=== PATIENT | male | born 1950 | race American Indian/Alaskan Native ===

== ENCOUNTER 2016-12-09 15:20 | Inpatient (IN) | payer MEDICARE, BC ==
--- NOTE | 2016-12-09 16:11 | C.PDOC ---
History Of Present Illness 66 yr old male referred to ED by Dr. Maloney for evaluation of 1 week of dizziness and occasional falls. Patient reports history of vertigo. Patient denies fever, chills, chest pain, SOB, nausea, vomiting, headache, weakness or numbness. Time Seen by Provider: 12/09/16 16:07 Chief Complaint (Nursing): Weakness/Neurological Deficit History Per: Patient History/Exam Limitations: no limitations Onset/Duration Of Symptoms: Days (1 week) Past Medical History Reviewed: Historical Data, Nursing Documentation, Vital Signs Vital Signs: Last Vital Signs Temp 97.6 F 12/09/16 15:43 Pulse 83 12/09/16 18:07 Resp 16 12/09/16 18:07 BP 134/93 H 12/09/16 18:07 Pulse Ox 98 12/09/16 18:37 - Medical History PMH: HTN Family History: States: No Known Family Hx - Social History Hx Alcohol Use: No Hx Substance Use: No - Immunization History Hx Tetanus Toxoid Vaccination: No Hx Influenza Vaccination: No Review Of Systems Except As Marked, All Systems Reviewed And Found Negative. Constitutional: Negative for: Fever, Chills Cardiovascular: Negative for: Chest Pain Respiratory: Negative for: Shortness of Breath Neurological: Positive for: Dizziness Physical Exam - Physical Exam Appears: Well, Non-toxic, No Acute Distress Skin: Warm, Dry, No Rash Head: Atraumatic, Normacephalic Chest: Symmetrical, No Tenderness Cardiovascular: Rhythm Regular, No Murmur Respiratory: Normal Breath Sounds, No Rales, No Wheezing Extremity: Normal ROM, No Swelling Neurological/Psych: Oriented x3, Normal Speech, Normal Motor ED Course And Treatment - Laboratory Results Result Diagrams: 12/09/16 16:57 12/09/16 16:49 Lab Interpretation: Normal (ua, UDS, etoh, neg.) ECG: Interpreted By Me, Viewed By Me ECG Rhythm: Sinus Rhythm ECG Interpretation: Normal, Abnormal Rate From EC (BPM) O2 Sat by Pulse Oximetry: 98 (RA) Pulse Ox Interpretation: Normal - Radiology CXR: Viewed By Me, Read By Radiologist CXR Interpretation: Yes: No Acute Disease - CT Scan/US CT - Head Other Rad Studies (CT/US): Read By Radiologist, Radiology Report Reviewed CT/US Interpretation: IMPRESSION: No acute intracranial abnormality. Mild age- related cerebral volume loss. Also noted is mild cerebellar volume loss. Reevaluation Time: 18:29 Reassessment Condition: Improved - Physician Consult Information Outcome Of Conversation: 1830: d/w Dr. Jason Palmer- covering for Dr. Court abernathy to Tele Obs. Medical Decision Making Medical Decision Making: PLAN: * CT - head * CXR * EKG * Alcohol Serum * Drug Screen * Troponin * CBC * CMP * Meclizine PO acute on chronic dizziness, ? ataxia vs vertigo, distant h/o epilepsy but no epilepsy meds x 30 years. denies h/o alcoholism. consider brain MRI and neuro consult in AM Disposition Doctor Will See Patient In The: Hospital Counseled Patient/Family Regarding: Studies Performed, Diagnosis - Disposition Disposition: HOSPITALIZED Disposition Time: 18:30 Condition: GOOD - Clinical Impression Clinical Impression: Ataxia, Frequent falls - Scribe Statement The provider has reviewed the documentation as recorded by the Scribe Kelley Burk Provider Attestation: All medical record entries made by the Scribe were at my direction and personally dictated by me. I have reviewed the chart and agree that the record accurately reflects my personal performance of the history, physical exam, medical decision making, and the department course for this patient. I have also personally directed, reviewed, and agree with the discharge instructions and disposition.
[2016-12-09 16:55] LABS: BASO % 0.6 % (0.0-2.0); EOS # 0.2 K/uL (0.0-0.7); EOS % 3.5 % (0.0-4.0); LYMPH # 1.8 K/uL (1.0-4.3); LYMPH % 37.7 % (20.0-40.0); MEAN CELL VOLUME 93.8 fL (80.0-94.0); MEAN CORPUSCULAR HEMOGLOBIN 30.6 pg (27.0-31.0); MEAN CORPUSCULAR HGB CONC 32.7 g/dL (33.0-37.0); MEAN PLATELET VOLUME 9.3 fL (7.2-11.7); MONO # 0.7 K/uL (0.0-0.8); MONO % 13.9 % (0.0-10.0); NRBC % 0.1 % (0.0-2.0); RED CELL DISTRIBUTION WIDTH 13.1 % (11.5-14.5); WHITE BLOOD COUNT 4.9 K/uL (4.8-10.8)
--- NOTE | 2016-12-09 16:59 | RAD ---
HISTORY: dizzy COMPARISON: No prior. FINDINGS: LUNGS: No active pulmonary disease. PLEURA: No significant pleural effusion identified, no pneumothorax apparent. CARDIOVASCULAR: Normal. OSSEOUS STRUCTURES: No significant abnormalities. VISUALIZED UPPER ABDOMEN: Normal. OTHER FINDINGS: None. IMPRESSION: No active disease.
[2016-12-09 17:00] LABS: CHLORIDE 102 mmol/L (98-107); POTASSIUM 4.2 mmol/L (3.6-5.2); SODIUM 139 mmol/L (132-148)
[2016-12-09 17:02] LABS: BILIRUBIN,TOTAL 0.6 mg/dL (0.2-1.3); CARBON DIOXIDE 30 mmol/L (22-30); CHOLESTEROL 142 mg/dL (0-199); GFR AFRICAN-AMERICAN > 60
[2016-12-09 17:03] LABS: ALB/GLOB RATIO 1.2 (1.0-2.1); ALKALINE PHOSPHATASE 94 U/L (38-126); ALT/SGPT 27 U/L (21-72); AST/SGOT 25 U/L (17-59); BLOOD UREA NITROGEN 18 mg/dL (9-20); CALCIUM 9.3 mg/dl (8.6-10.4); GLUCOSE,RANDOM 81 mg/dL (75-110); TOTAL PROTEIN 7.5 g/dL (6.3-8.3)
[2016-12-09 17:04] LABS: ALCOHOL SERUM < 10 mg/dl (0-10)
--- NOTE | 2016-12-09 18:25 | CT ---
PROCEDURE: CT HEAD WITHOUT CONTRAST. HISTORY: vertigo, falls, ? cerebellar COMPARISON: None available. TECHNIQUE: Axial computed tomography images were obtained through the head/brain without intravenous contrast. Radiation dose: Total exam DLP = 1026.21 mGy-cm. This CT exam was performed using one or more of the following dose reduction techniques: Automated exposure control, adjustment of the mA and/or kV according to patient size, and/or use of iterative reconstruction technique. FINDINGS: HEMORRHAGE: No acute intracranial hemorrhage. BRAIN: Reardon-white matter differentiation is preserved. There is no mass, mass effect or abnormal extra-axial fluid collection will VENTRICLES: There is mild age-related global parenchymal volume loss and proportionate enlargement of the ventricles and cortical sulci. There is also prominence of the cerebellar folia. CALVARIUM: There is no calvarial fracture or extracranial soft tissue swelling. PARANASAL SINUSES: Unremarkable as visualized. No significant inflammatory changes. MASTOID AIR CELLS: Unremarkable as visualized. No inflammatory changes. OTHER FINDINGS: None. IMPRESSION: No acute intracranial abnormality. Mild age-related cerebral volume loss. Also noted is mild cerebellar volume loss.
--- NOTE | 2016-12-09 21:54 | CP.PCM.HP ---
Past Patient History - Past Medical History & Family History Past Medical History?: Yes - Past Social History Smoking Status: Never Smoked - CARDIAC Hx Hypertension: Yes - PULMONARY Hx Respiratory Disorders: No - NEUROLOGICAL Hx Neurological Disorder: No - HEENT Hx HEENT Problems: No - RENAL Hx Chronic Kidney Disease: No - ENDOCRINE/METABOLIC Hx Endocrine Disorders: No - HEMATOLOGICAL/ONCOLOGICAL Hx Blood Disorders: No - INTEGUMENTARY Hx Dermatological Problems: No - MUSCULOSKELETAL/RHEUMATOLOGICAL Hx Musculoskeletal Disorders: No Hx Falls: Yes - GASTROINTESTINAL Hx Gastrointestinal Disorders: No - GENITOURINARY/GYNECOLOGICAL Hx Genitourinary Disorders: No - PSYCHIATRIC Hx Psychophysiologic Disorder: No Hx Substance Use: No - SURGICAL HISTORY Hx Surgeries: No - ANESTHESIA Hx Anesthesia: No Hx Anesthesia Reactions: No Meds Allergies/Adverse Reactions: Allergies Allergy/AdvReac Type Severity Reaction Status Date / Time No Known Allergies Allergy Unverified 12/09/16 15:38 Results - Vital Signs Recent Vital Signs: Last Vital Signs Temp 97.6 F 12/09/16 15:43 Pulse 76 12/09/16 19:09 Resp 18 12/09/16 19:09 BP 133/93 H 12/09/16 19:09 Pulse Ox 99 12/09/16 19:09 - Labs Result Diagrams: 12/09/16 16:57 12/09/16 16:49
[2016-12-09] MEDS: guaiFENesin 200 mg/10 ml Syrup UD PO PRN (22:12)
--- NOTE | 2016-12-09 22:33 | CP.PCM.CON ---
History of Present Illness - History of Present Illness History of Present Illness: 66 year old with HTN, admitted with dizziness, near syncope, never LOC, + fall no injury, Head CT no pathology, improved with antivert. no fever, no CP no N/V Review of Systems - Constitutional Constitutional: Anorexia, Weakness - EENT Eyes: absent: Discharge Ears: Dizziness. absent: Ear Discharge Nose/Mouth/Throat: absent: Epistaxis - Cardiovascular Cardiovascular: absent: Acrocyanosis, Chest Pain, Diaphoresis, Leg Edema, Palpitations, Syncope - Respiratory Respiratory: absent: Cough, Dyspnea, Hemoptysis - Gastrointestinal Gastrointestinal: absent: Abdominal Pain, Diarrhea, Vomiting - Genitourinary Genitourinary: absent: Change in Urinary Stream Past Patient History - Past Medical History & Family History Past Medical History?: Yes - Past Social History Smoking Status: Never Smoked - CARDIAC Hx Hypertension: Yes - PULMONARY Hx Respiratory Disorders: No - NEUROLOGICAL Hx Neurological Disorder: No - HEENT Hx HEENT Problems: No - RENAL Hx Chronic Kidney Disease: No - ENDOCRINE/METABOLIC Hx Endocrine Disorders: No - HEMATOLOGICAL/ONCOLOGICAL Hx Blood Disorders: No - INTEGUMENTARY Hx Dermatological Problems: No - MUSCULOSKELETAL/RHEUMATOLOGICAL Hx Musculoskeletal Disorders: No Hx Falls: Yes - GASTROINTESTINAL Hx Gastrointestinal Disorders: No - GENITOURINARY/GYNECOLOGICAL Hx Genitourinary Disorders: No - PSYCHIATRIC Hx Psychophysiologic Disorder: No Hx Substance Use: No - SURGICAL HISTORY Hx Surgeries: No - ANESTHESIA Hx Anesthesia: No Hx Anesthesia Reactions: No Meds Allergies/Adverse Reactions: Allergies Allergy/AdvReac Type Severity Reaction Status Date / Time No Known Allergies Allergy Unverified 12/09/16 15:38 - Medications Medications: Current Medications Amlodipine Besylate (Norvasc) 5 mg PO DAILY [facility] Ergocalciferol (Drisdol 50,000 Intl Units Cap) 1 cap PO QWK [facility] Guaifenesin (Robitussin) 200 mg PO TID PRN PRN Reason: Cough and congestion Last Admin: 12/09/16 22:12 Dose: 200 mg Meclizine HCl (Antivert) 25 mg PO TID [facility] Pantoprazole Sodium (Protonix Ec Tab) 40 mg PO DAILY [facility] Pneumococcal Polyvalent Vaccine (Pneumovax 23 Vaccine) 0.5 ml IM .ONCE ONE Stop: 12/12/16 10:01 Physical Exam - Constitutional Appears: Non-toxic, No Acute Distress - Head Exam Head Exam: ATRAUMATIC - Eye Exam Eye Exam: EOMI - ENT Exam ENT Exam: Mucous Membranes Moist - Neck Exam Neck exam: Negative for: Lymphadenopathy, Thyromegaly - Respiratory Exam Respiratory Exam: Clear to Auscultation Bilateral. absent: Rales - Cardiovascular Exam Cardiovascular Exam: REGULAR RHYTHM. absent: Systolic Murmur - GI/Abdominal Exam GI & Abdominal Exam: Normal Bowel Sounds. absent: Organomegaly - Rectal Exam Rectal Exam: Deferred - Extremities Exam Extremities exam: Positive for: normal capillary refill. Negative for: calf tenderness - Neurological Exam Neurological exam: Alert, Oriented x3 - Psychiatric Exam Psychiatric exam: Normal Mood - Skin Skin Exam: Dry Results - Vital Signs Recent Vital Signs: Last Vital Signs Temp 98.2 F 12/09/16 22:02 Pulse 89 12/09/16 22:02 Resp 18 12/09/16 22:02 BP 129/86 12/09/16 22:02 Pulse Ox 96 12/09/16 22:02 - Labs Result Diagrams: 12/09/16 16:57 12/09/16 16:49 Assessment & Plan (1) Near syncope Status: Acute Comment: unlikely arrhythmia, check echo (2) Frequent falls Status: Acute
--- NOTE | 2016-12-10 08:34 | CON ---
DATE: 12/10/2016 ATTENDING PHYSICIAN: Pramod Palmer MD The patient's room number is 665, bed A. REASON FOR CONSULTATION: Dizziness. CHIEF COMPLAINT: The patient has been presenting with a history of dizziness for the last 1 month; h owever, 2 days, the symptoms got worse. From neurological point of view, I was called in to evaluate him for further management. 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 F or the last 1 month, he has been having these symptoms; however, for the last 2 days, dizziness got i ntensified while he is walking. No history of fall, no history of body leaning to either side of his body. No history of loss of consciousness, no history of involuntary movements, no history of head trauma. No history of neck injuries. No history of bowel and bladder incontinence or bitten tongue. No similar episodes happened. This episode is not associating with nausea or vomiting, double visi on and poor speech impairment. PAST MEDICAL HISTORY: Hypertension. PERSONAL HISTORY: Denies smoking or alcohol use. ALLERGIES: No known allergies. REVIEW OF SYSTEMS: As per the H and P. MEDICATIONS: Meclizine, amlodipine, pantoprazole, Robitussin. PHYSICAL EXAMINATION: VITAL SIGNS: Blood pressure 137/92, mean arterial pressure of 107, respiratory rate 16, temperature 98.2, pulse rate 83, regular. NECK: Supple. No carotid bruit. HEART: Sounds are regular. CHEST: Fair air entry. EXTREMITIES: No edema in legs. NEUROLOGIC EXAMINATION: MENTAL STATUS: He is awake, alert, oriented to person, place, and time. Speech is clear. Naming, r epetition, fluency, comprehension all within normal. CRANIAL NERVE: Visual field intact, pupils reactive to light. Extraocular movements are normal. No nystagmus, no facial sensory deficits. Mild facial asymmetry manifesting as flattening of the right nasolabial fold. Hearing is normal. Tongue is midline. Good gag. MOTOR: On outstretched hand with eyes closed, no drift noted. Power is symmetric on either side. DEEP TENDON REFLEXES: Biceps, brachialis, triceps are absent, left knee 2+, right knee absent. Both ankles are absent. Plantars are equivocal response on the left side, right side was downgoing. SENSORY: No cortical sensory loss. COORDINATION: Zwaqyu-caad-runpnd test is intact. GAIT: He could get up by himself out of the bed and march in one place. Rhomberg sign negative. Ta ndem is not normal, leaning the body either side. CONCLUSION: Upon reviewing his history and neurological examination, the patient is presenting with ataxic hemiparesis, probably small vessel disease versus mass in posterior cerebral artery distributi on versus infratentorial region. WORKUP: CT of the head reviewed. No acute pathologies noted. EKG normal sinus rhythm. BLOOD WORKUP: WBC 4.9, hemoglobin 13.7, hematocrit 42.0, platelets 143. PT 11.0, INR 1.0, PTT 29. Sodium 139, potassium 4.2, chloride 102, bicarbonate 30, BUN 18, creatinine 0.8, GFR more than 60, h emoglobin A1c 5.8, calcium 9.3. Liver functions are normal. Cholesterol 142, triglyceride 10, LDL 7 6, HDL 49. Urine for tox screen negative. RECOMMENDATIONS: 1. Plavix is added to prevent ischemic process. 2. Blood pressure maintenance to keep mean arterial pressure of 100. 3. Carotid Doppler to rule out stenosis. Echocardiogram to rule out any cardioembolic phenomenon, M RI of the brain to rule out any ischemic process versus mass lesion. The patient's condition has been well discussed with him. He agreed with the plan of management. Th e patient should get out of the bed and DVT prophylaxis should be followed. The patient will be followed closely while he is in the hospital. Miller Rossi MD cc: [id number] TT: 12/10/2016 08:33:42 Confirmation # [id number] Dictation # [id number] tn
[2016-12-10] MEDS ORDERED: Pantoprazole 40 mg EC Tab PO SCH (10:00)
--- NOTE | 2016-12-10 11:45 | MRI ---
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 TECHNIQUE: Multiplanar, multisequence MR images of the brain were obtained without intravenous contrast enhancement. FINDINGS: HEMORRHAGE: None DWI: No evidence of an acute or early subacute infarction. BRAIN PARENCHYMA: No mass effect or edema. Mild atrophy. Numerous foci of white matter signal abnormality in the frontal and parietal subcortical white matter as well as in the periatrial white matter which is nonspecific but statistically most likely secondary to chronic microvascular ischemic disease. No evidence of acute infarct. VENTRICLES: Unremarkable. No hydrocephalus. CRANIUM: Unremarkable. ORBITS: Grossly unremarkable. PARANASAL SINUSES/MASTOIDS: Clear VASCULAR SYSTEM: Skull base flow voids intact. OTHER FINDINGS: None. IMPRESSION: Numerous foci of white matter signal abnormality in the frontal and parietal subcortical white matter as well as in the periatrial white matter which is nonspecific but statistically most likely secondary to chronic microvascular ischemic disease. No evidence of acute infarct.
[2016-12-10 12:17] LABS: FREE T4 0.69 ng/dL (0.78-2.19)
[2016-12-10 12:30] LABS: THYROID STIMULATING HORMONE 1.73 mIU/L (0.46-4.68)
--- NOTE | 2016-12-10 13:26 | CP.PCM.PN ---
Subjective - Date & Time of Evaluation Date of Evaluation: 12/10/16 Time of Evaluation: 12:20 - Subjective Subjective: clinically same Objective - Vital Signs/Intake and Output Vital Signs (last 24 hours): Temp Pulse Resp BP Pulse Ox 97.5 F L 66 20 123/72 97 12/10/16 07:35 12/10/16 08:10 12/10/16 07:35 12/10/16 07:35 12/10/16 07:35 Intake and Output: 12/10/16 12/10/16 06:59 18:59 Intake Total 240 Balance 240 - Medications Medications: Current Medications Amlodipine Besylate (Norvasc) 5 mg PO DAILY [facility] Last Admin: 12/10/16 09:17 Dose: 5 mg Clopidogrel Bisulfate (Plavix) 75 mg PO DAILY [facility] Last Admin: 12/10/16 09:16 Dose: 75 mg Ergocalciferol (Drisdol 50,000 Intl Units Cap) 1 cap PO QWK [facility] Famotidine (Pepcid) 20 mg PO BID [facility] Last Admin: 12/10/16 09:15 Dose: 20 mg Guaifenesin (Robitussin) 200 mg PO TID PRN PRN Reason: Cough and congestion Last Admin: 12/09/16 22:12 Dose: 200 mg Meclizine HCl (Antivert) 25 mg PO TID [facility] Last Admin: 12/10/16 13:09 Dose: 25 mg Pneumococcal Polyvalent Vaccine (Pneumovax 23 Vaccine) 0.5 ml IM .ONCE ONE Stop: 12/12/16 10:01 Thiamine HCl (Vitamin B1 Tab) 100 mg PO DAILY [facility] Last Admin: 12/10/16 09:17 Dose: 100 mg - Labs Labs: PT 11.0 SECONDS (9.7-12.2) 12/09/16 16:49 INR 1.0 12/09/16 16:49 APTT 29 SECONDS (21-34) 12/09/16 16:49 - Constitutional Appears: Well - Head Exam Head Exam: ATRAUMATIC, NORMAL INSPECTION, NORMOCEPHALIC - Eye Exam Eye Exam: EOMI, Normal appearance, PERRL Pupil Exam: NORMAL ACCOMODATION, PERRL - ENT Exam ENT Exam: Mucous Membranes Moist, Normal Exam - Neck Exam Neck Exam: Full ROM, Normal Inspection. absent: Lymphadenopathy - Respiratory Exam Respiratory Exam: Decreased Breath Sounds - Cardiovascular Exam Cardiovascular Exam: REGULAR RHYTHM, +S1, +S2 - GI/Abdominal Exam GI & Abdominal Exam: Soft, Diminished Bowel Sounds - Rectal Exam Rectal Exam: Deferred
[2016-12-10] MEDS: guaiFENesin 200 mg/10 ml Syrup UD PO PRN (14:36)
--- NOTE | 2016-12-10 15:23 | CP.PCM.PN ---
Subjective - Date & Time of Evaluation Date of Evaluation: 12/10/16 Time of Evaluation: 12:00 - Subjective Subjective: echo with NL LV, No , no effusion, unlikely arrhythmia, stable cardic treatment of vertigo Objective - Vital Signs/Intake and Output Vital Signs (last 24 hours): Temp Pulse Resp BP Pulse Ox 97.5 F L 66 20 123/72 97 12/10/16 07:35 12/10/16 08:10 12/10/16 07:35 12/10/16 07:35 12/10/16 07:35 Intake and Output: 12/10/16 12/10/16 06:59 18:59 Intake Total 240 Balance 240 - Medications Medications: Current Medications Amlodipine Besylate (Norvasc) 5 mg PO DAILY [facility] Last Admin: 12/10/16 09:17 Dose: 5 mg Clopidogrel Bisulfate (Plavix) 75 mg PO DAILY [facility] Last Admin: 12/10/16 09:16 Dose: 75 mg Ergocalciferol (Drisdol 50,000 Intl Units Cap) 1 cap PO QWK [facility] Famotidine (Pepcid) 20 mg PO BID [facility] Last Admin: 12/10/16 09:15 Dose: 20 mg Guaifenesin (Robitussin) 200 mg PO TID PRN PRN Reason: Cough and congestion Last Admin: 12/10/16 14:36 Dose: 200 mg Meclizine HCl (Antivert) 25 mg PO TID [facility] Last Admin: 12/10/16 13:09 Dose: 25 mg Pneumococcal Polyvalent Vaccine (Pneumovax 23 Vaccine) 0.5 ml IM .ONCE ONE Stop: 12/12/16 10:01 Thiamine HCl (Vitamin B1 Tab) 100 mg PO DAILY [facility] Last Admin: 12/10/16 09:17 Dose: 100 mg - Labs Labs: PT 11.0 SECONDS (9.7-12.2) 12/09/16 16:49 INR 1.0 12/09/16 16:49 APTT 29 SECONDS (21-34) 12/09/16 16:49 - Constitutional Appears: Non-toxic - Head Exam Head Exam: ATRAUMATIC - Eye Exam Eye Exam: EOMI - ENT Exam ENT Exam: Mucous Membranes Moist - Neck Exam Neck Exam: absent: Lymphadenopathy, Thyromegaly - Respiratory Exam Respiratory Exam: Clear to Ausculation Bilateral. absent: Rales - Cardiovascular Exam Cardiovascular Exam: REGULAR RHYTHM, Murmur - GI/Abdominal Exam GI & Abdominal Exam: Normal Bowel Sounds. absent: Organomegaly - Rectal Exam Rectal Exam: Deferred - Extremities Exam Extremities Exam: Normal Capillary Refill. absent: Calf Tenderness - Neurological Exam Neurological Exam: Alert, Oriented x3 - Psychiatric Exam Psychiatric exam: Normal Mood - Skin Skin Exam: Dry Assessment and Plan (1) Near syncope Status: Acute (2) Frequent falls Status: Acute
--- NOTE | 2016-12-10 20:24 | CARD ---
APPROVED REPORT EXAM: Two-dimensional and M-mode echocardiogram with Doppler and color Doppler. Other Information Quality : GoodRhythm : NSR INDICATION Dizziness and Vertigo Syncope FREQUENT FALLS, CEREBELLAR ATROPHY M-Mode DIMENSIONS RVDd2.02 (2.1-3.2cm)Left Atrium (MM)3.38 (2.5-4.0cm) IVSd1.07 (0.7-1.1cm)Aortic Root3.74 (2.2-3.7cm) LVDd4.69 (4.0-5.6cm)Aortic Cusp Exc.2.51 (1.5-2.0cm) PWd1.07 (0.7-1.1cm)FS (%) 40 % LVDs2.80 (2.0-3.8cm)LVEF (%)71 (>50%) Aortic Valve AoV Peak Hvekblkr233.2cm/Gregorio Peak GR.6mmHg Mitral Valve MV E Pqzgwvii74.7cm/sMV A Qkrfcwjp20.0cm/sE/A ratio1.1 TDI E/Lateral E'0.0E/Medial E'0.0 Tricuspid Valve TR Peak [id number]/sTR Peak Gr.[id number] LEFT VENTRICLE The left ventricle is normal size. There is borderline concentric left ventricular hypertrophy. The left ventricular function is normal. The left ventricular ejection fraction is within the normal range. There is normal LV segmental wall motion. Transmitral Doppler flow pattern is Grade I-abnormal relaxation pattern. RIGHT VENTRICLE The right ventricle is normal size. There is normal right ventricular wall thickness. The right ventricular systolic function is normal. ATRIA The left atrium size is normal. The right atrium size is normal. AORTIC VALVE The aortic valve is not well visualized. No aortic regurgitation is present. MITRAL VALVE The mitral valve is mildly thickened. There is no mitral valve stenosis. There is no mitral valve regurgitation noted. TRICUSPID VALVE There is mild pulmonary hypertension. PULMONIC VALVE There is trace to mild pulmonic valvular regurgitation. GREAT VESSELS The aortic root is normal in size. The IVC is normal in size and collapses >50% with inspiration. PERICARDIAL EFFUSION There is no pericardial effusion. <Conclusion> The left ventricle is normal size. There is borderline concentric left ventricular hypertrophy. The left ventricular function is normal. The left ventricular ejection fraction is within the normal range. There is normal LV segmental wall motion. Transmitral Doppler flow pattern is Grade I-abnormal relaxation pattern. There is mild pulmonary hypertension.
[2016-12-11 07:36] LABS: BASO % 0.4 % (0.0-2.0); EOS # 0.2 K/uL (0.0-0.7); EOS % 4.7 % (0.0-4.0); HEMATOCRIT 39.6 % (35.0-51.0); LYMPH % 43.2 % (20.0-40.0); MEAN CELL VOLUME 94.5 fL (80.0-94.0); MEAN CORPUSCULAR HEMOGLOBIN 31.1 pg (27.0-31.0); MEAN CORPUSCULAR HGB CONC 32.9 g/dL (33.0-37.0); MEAN PLATELET VOLUME 9.5 fL (7.2-11.7); MONO # 0.7 K/uL (0.0-0.8); MONO % 14.7 % (0.0-10.0); RED CELL DISTRIBUTION WIDTH 12.9 % (11.5-14.5); WHITE BLOOD COUNT 4.6 K/uL (4.8-10.8)
[2016-12-11 07:49] LABS: CHLORIDE 107 mmol/L (98-107)
[2016-12-11 07:50] LABS: POTASSIUM 4.2 mmol/L (3.6-5.2); SODIUM 141 mmol/L (132-148)
[2016-12-11 07:52] LABS: CARBON DIOXIDE 27 mmol/L (22-30); GFR AFRICAN-AMERICAN > 60
[2016-12-11 07:53] LABS: ALB/GLOB RATIO 1.1 (1.0-2.1); ALKALINE PHOSPHATASE 77 U/L (38-126); ALT/SGPT 24 U/L (21-72); AST/SGOT 20 U/L (17-59); BILIRUBIN,TOTAL 0.7 mg/dL (0.2-1.3); BLOOD UREA NITROGEN 25 mg/dL (9-20); CALCIUM 8.8 mg/dl (8.6-10.4); GLUCOSE,RANDOM 94 mg/dL (75-110); TOTAL PROTEIN 6.5 g/dL (6.3-8.3)
[2016-12-11] MEDS: guaiFENesin 200 mg/10 ml Syrup UD PO PRN (09:48)
--- NOTE | 2016-12-11 11:55 | PN ---
DATE: 12/11/2016 TIME OF EVALUATION: 11:15 a.m. NEUROLOGICAL PROBLEM: Near syncopal attack with dizziness. PHYSICAL EXAMINATION: VITAL SIGNS: Blood pressure 122/84, mean arterial pressure of 96, respiratory rate 16, temperature 9 7.8, pulse rate 63, regular. The patient is ambulating by himself. He denies any new complaints, except mild lightheadedness in h is head, which is not changed. Examination is overall unchanged to compare with my previous examinat ion. WORKUP: MRI showed significant atrophy, more than his age. Periventricular ischemic changes, which are all old. No acute pathologies noted. The patient is on antiplatelets with blood pressure medication, which should be continued. The patie nt also should have an electroencephalogram, which can be done in the morning. Following that, if me dically stable, the patient can be discharged and should have a followup visit with me as outpatient. As outpatient, patient will be scheduled to have polysomnogram to assess his hidden sleep related b reathing disorder for further management. Miller Rossi MD cc: [id number] TT: 12/11/2016 11:55:02 Confirmation # [id number] Dictation # [id number]
--- NOTE | 2016-12-11 14:42 | CP.PCM.PN ---
Subjective - Date & Time of Evaluation Date of Evaluation: 12/11/16 Time of Evaluation: 12:00 - Subjective Subjective: MRI with small foci suggestive of ischemia and small vessel disease, with ataxia , echocardiogram failed to reveal any possible cardiac embolic source, stable cardiac follow-up with neurology on treatment for vertigo Objective - Vital Signs/Intake and Output Vital Signs (last 24 hours): Temp Pulse Resp BP Pulse Ox 97.8 F 93 H 20 122/84 94 L 12/11/16 08:20 12/11/16 11:55 12/11/16 08:20 12/11/16 08:20 12/11/16 11:55 Intake and Output: 12/11/16 12/11/16 06:59 18:59 Intake Total 450 Balance 450 - Medications Medications: Current Medications Amlodipine Besylate (Norvasc) 5 mg PO DAILY [facility] Last Admin: 12/11/16 09:48 Dose: 5 mg Clopidogrel Bisulfate (Plavix) 75 mg PO DAILY [facility] Last Admin: 12/11/16 09:49 Dose: 75 mg Ergocalciferol (Drisdol 50,000 Intl Units Cap) 1 cap PO QWK [facility] Famotidine (Pepcid) 20 mg PO BID [facility] Last Admin: 12/11/16 09:48 Dose: 20 mg Guaifenesin (Robitussin) 200 mg PO TID PRN PRN Reason: Cough and congestion Last Admin: 12/11/16 09:48 Dose: 200 mg Heparin Sodium (Porcine) (Heparin) 5,000 units SC Q12 [facility] Last Admin: 12/11/16 09:48 Dose: 5,000 units Meclizine HCl (Antivert) 25 mg PO TID [facility] Last Admin: 12/11/16 13:08 Dose: 25 mg Pneumococcal Polyvalent Vaccine (Pneumovax 23 Vaccine) 0.5 ml IM .ONCE ONE Stop: 12/12/16 10:01 Thiamine HCl (Vitamin B1 Tab) 100 mg PO DAILY [facility] Last Admin: 12/11/16 09:48 Dose: 100 mg - Labs Labs: 12/11/16 07:11 12/11/16 07:11 PT 11.0 SECONDS (9.7-12.2) 12/09/16 16:49 INR 1.0 12/09/16 16:49 APTT 29 SECONDS (21-34) 12/09/16 16:49 - Constitutional Appears: Non-toxic - Head Exam Head Exam: ATRAUMATIC - Eye Exam Eye Exam: EOMI - ENT Exam ENT Exam: Mucous Membranes Moist - Neck Exam Neck Exam: absent: Lymphadenopathy, Thyromegaly - Respiratory Exam Respiratory Exam: Clear to Ausculation Bilateral. absent: Rales - Cardiovascular Exam Cardiovascular Exam: REGULAR RHYTHM, Murmur - GI/Abdominal Exam GI & Abdominal Exam: Normal Bowel Sounds. absent: Organomegaly - Rectal Exam Rectal Exam: Deferred - Extremities Exam Extremities Exam: Normal Capillary Refill. absent: Calf Tenderness - Neurological Exam Neurological Exam: Alert, Oriented x3 - Psychiatric Exam Psychiatric exam: Normal Mood - Skin Skin Exam: Dry Assessment and Plan (1) Near syncope Status: Acute (2) Frequent falls Status: Acute
--- NOTE | 2016-12-11 15:42 | CP.PCM.PN ---
Subjective - Date & Time of Evaluation Date of Evaluation: 12/11/16 Time of Evaluation: 13:45 - Subjective Subjective: clinically same Objective - Vital Signs/Intake and Output Vital Signs (last 24 hours): Temp Pulse Resp BP Pulse Ox 97.8 F 93 H 20 122/84 94 L 12/11/16 08:20 12/11/16 11:55 12/11/16 08:20 12/11/16 08:20 12/11/16 11:55 Intake and Output: 12/11/16 12/11/16 06:59 18:59 Intake Total 450 Balance 450 - Medications Medications: Current Medications Amlodipine Besylate (Norvasc) 5 mg PO DAILY [facility] Last Admin: 12/11/16 09:48 Dose: 5 mg Clopidogrel Bisulfate (Plavix) 75 mg PO DAILY [facility] Last Admin: 12/11/16 09:49 Dose: 75 mg Ergocalciferol (Drisdol 50,000 Intl Units Cap) 1 cap PO QWK [facility] Famotidine (Pepcid) 20 mg PO BID [facility] Last Admin: 12/11/16 09:48 Dose: 20 mg Guaifenesin (Robitussin) 200 mg PO TID PRN PRN Reason: Cough and congestion Last Admin: 12/11/16 09:48 Dose: 200 mg Heparin Sodium (Porcine) (Heparin) 5,000 units SC Q12 [facility] Last Admin: 12/11/16 09:48 Dose: 5,000 units Meclizine HCl (Antivert) 25 mg PO TID [facility] Last Admin: 12/11/16 13:08 Dose: 25 mg Pneumococcal Polyvalent Vaccine (Pneumovax 23 Vaccine) 0.5 ml IM .ONCE ONE Stop: 12/12/16 10:01 Thiamine HCl (Vitamin B1 Tab) 100 mg PO DAILY [facility] Last Admin: 12/11/16 09:48 Dose: 100 mg - Labs Labs: 12/11/16 07:11 12/11/16 07:11 PT 11.0 SECONDS (9.7-12.2) 12/09/16 16:49 INR 1.0 12/09/16 16:49 APTT 29 SECONDS (21-34) 12/09/16 16:49
--- NOTE | 2016-12-12 09:21 | VASCLAB ---
PROCEDURE: HISTORY: assess stenosis COMPARISON: None available. TECHNIQUE: Grayscale and duplex Doppler evaluation of the cervical carotid and vertebral arteries were performed. The common carotid, carotid bifurcations and cervical Internal Carotid Artery (ICA) and proximal External Carotid Artery (ECA) were evaluated. The vertebral arteries were evaluated for gross patency and flow direction. Report prepared by Mikael Ayala, BS, RVT FINDINGS: RIGHT CAROTID ARTERIES: 1. Common Carotid Artery: No significant focal plaque formation of the right common carotid artery. Maximum Peak Systolic velocity: 67 cm/sec: End-diastolic velocity 16 cm/sec. 2. Carotid Bifurcation: plaque formation. Maximum Peak Systolic velocity: 52 cm/sec: End-diastolic velocity 20 cm/sec. 3. Internal Carotid Artery: Plaque description: 3.1. Proximal Segment: Peak systolic velocity 51 cm/sec: End-diastolic velocity 21 cm/sec - % stenosis 0-15% 3.2. Middle Segment: Peak systolic velocity 70 cm/sec: End-diastolic velocity 27 cm/sec - % stenosis 0-15% 3.3. Distal Segment: Peak systolic velocity 60 cm/sec: End-diastolic velocity 24 cm/sec - % stenosis 0-15% 4. External Carotid Artery: No significant focal plaque formation. Peak systolic velocity 89 cm/sec 5. ICA/CCA Ratio: 1.0 LEFT CAROTID ARTERIES: 1. Common Carotid Artery: No significant focal plaque formation of the left common carotid artery. Maximum Peak Systolic velocity: 88 cm/sec: End-diastolic velocity 24 cm/sec. 2. Carotid Bifurcation: plaque formation. Maximum Peak Systolic velocity: 67 cm/sec: End-diastolic velocity 24 cm/sec. 3. Internal Carotid Artery: Plaque description: 3.1. Proximal Segment: Peak systolic velocity 46 cm/sec: End-diastolic velocity 18 cm/sec - % stenosis 0-15% 3.2. Middle Segment: Peak systolic velocity 54 cm/sec: End-diastolic velocity 26 cm/sec - % stenosis 0-15% 3.3. Distal Segment: Peak systolic velocity 82 cm/sec: End-diastolic velocity 24 cm/sec - % stenosis 0-15% 4. External Carotid Artery: No significant focal plaque formation. Peak systolic velocity 98 cm/sec 5. ICA/CCA Ratio: 0.9 VERTEBRAL ARTERIES: 1. Right Vertebral Artery: The right vertebral artery flow direction is antegrade. 2. Left Vertebral Artery: The left vertebral artery flow direction is antegrade. OTHER FINDINGS: 1. Right Brachial Blood pressure: 128 mmHg. 2. Left Brachial Blood pressure: 125 mmHg. IMPRESSION: RIGHT: Duplex scan does not suggest hemodynamically significant stenosis of the right extracranial carotid arteries. LEFT: Duplex scan does not suggest hemodynamically significant stenosis of the left extracranial carotid arteries.
[2016-12-12] MEDS ORDERED: Pneumococcal 23-Valent Vaccine IM ONE ×2 (10:00→17:09)
--- NOTE | 2016-12-12 10:08 | PN ---
DATE: 12/12/2016 VITAL SIGNS: Blood pressure 128/84, mean arterial pressure of 98, respiratory rate 18, temperature 9 8, pulse rate 66, regular. NEUROLOGICAL PROBLEM: Vestibulopathy versus vestibular neuronitis or brainstem TIA. The patient denies any complaints at present. He does not feel any complaints while he is lying down . However, he admits he may sit up, he may have the same symptoms like what he had before. No doubl e vision, no visual or bulbar dysfunction present. The patient is stable for 48-hour period. Workup is all completed except electroencephalogram. Following electroencephalogram, patient can be discharged and should have a followup visit as outpati ent. The rest of the treatment as he has been getting it. Miller Rossi MD cc: [id number] TT: 12/12/2016 10:08:40 Confirmation # [id number] Dictation # [id number]
--- NOTE | 2016-12-12 13:17 | CP.PCM.PN ---
Subjective - Date & Time of Evaluation Date of Evaluation: 12/12/16 Time of Evaluation: 13:00 - Subjective Subjective: Seen by neurology, brainstem TIA versus vestibulopathy, no arrhythmia, stable cardiac we will observe with neurology Objective - Vital Signs/Intake and Output Vital Signs (last 24 hours): Temp Pulse Resp BP Pulse Ox 97.5 F L 69 18 133/86 96 12/12/16 07:12 12/12/16 07:12 12/12/16 07:12 12/12/16 07:12 12/12/16 07:12 Intake and Output: 12/12/16 12/12/16 06:59 18:59 Intake Total 480 Balance 480 - Medications Medications: Current Medications Amlodipine Besylate (Norvasc) 5 mg PO DAILY [facility] Last Admin: 12/12/16 12:10 Dose: 5 mg Clopidogrel Bisulfate (Plavix) 75 mg PO DAILY [facility] Last Admin: 12/12/16 12:09 Dose: 75 mg Ergocalciferol (Drisdol 50,000 Intl Units Cap) 1 cap PO QWK [facility] Famotidine (Pepcid) 20 mg PO BID [facility] Last Admin: 12/12/16 12:10 Dose: 20 mg Guaifenesin (Robitussin) 200 mg PO TID PRN PRN Reason: Cough and congestion Last Admin: 12/11/16 09:48 Dose: 200 mg Heparin Sodium (Porcine) (Heparin) 5,000 units SC Q12 [facility] Last Admin: 12/12/16 12:10 Dose: 5,000 units Meclizine HCl (Antivert) 25 mg PO TID [facility] Last Admin: 12/12/16 12:09 Dose: 25 mg Thiamine HCl (Vitamin B1 Tab) 100 mg PO DAILY [facility] Last Admin: 12/12/16 12:10 Dose: 100 mg - Labs Labs: PT 11.0 SECONDS (9.7-12.2) 12/09/16 16:49 INR 1.0 12/09/16 16:49 APTT 29 SECONDS (21-34) 12/09/16 16:49 - Constitutional Appears: Non-toxic - Head Exam Head Exam: ATRAUMATIC - Eye Exam Eye Exam: EOMI - ENT Exam ENT Exam: Mucous Membranes Moist - Neck Exam Neck Exam: absent: Lymphadenopathy, Thyromegaly - Respiratory Exam Respiratory Exam: Clear to Ausculation Bilateral. absent: Rales - Cardiovascular Exam Cardiovascular Exam: REGULAR RHYTHM, Murmur - GI/Abdominal Exam GI & Abdominal Exam: Normal Bowel Sounds. absent: Organomegaly - Rectal Exam Rectal Exam: Deferred - Extremities Exam Extremities Exam: Normal Capillary Refill. absent: Calf Tenderness - Neurological Exam Neurological Exam: Alert, Oriented x3 - Psychiatric Exam Psychiatric exam: Normal Mood - Skin Skin Exam: Dry Assessment and Plan (1) Near syncope Status: Acute (2) Frequent falls Status: Acute
--- NOTE | 2016-12-12 14:27 | CARD ---
APPROVED REPORT EKG Measurement Heart [id number] <Conclusion> Normal sinus rhythm Voltage criteria for left ventricular hypertrophy Abnormal ECG
--- NOTE | 2016-12-12 15:08 | CP.PCM.PN ---
Subjective - Date & Time of Evaluation Date of Evaluation: 12/12/16 Time of Evaluation: 15:08 Objective - Vital Signs/Intake and Output Vital Signs (last 24 hours): Temp Pulse Resp BP Pulse Ox 97.5 F L 69 18 133/86 96 12/12/16 07:12 12/12/16 07:12 12/12/16 07:12 12/12/16 07:12 12/12/16 07:12 Intake and Output: 12/12/16 12/12/16 06:59 18:59 Intake Total 480 Balance 480 - Medications Medications: Current Medications Amlodipine Besylate (Norvasc) 5 mg PO DAILY [facility] Last Admin: 12/12/16 12:10 Dose: 5 mg Clopidogrel Bisulfate (Plavix) 75 mg PO DAILY [facility] Last Admin: 12/12/16 12:09 Dose: 75 mg Ergocalciferol (Drisdol 50,000 Intl Units Cap) 1 cap PO QWK [facility] Famotidine (Pepcid) 20 mg PO BID [facility] Last Admin: 12/12/16 12:10 Dose: 20 mg Guaifenesin (Robitussin) 200 mg PO TID PRN PRN Reason: Cough and congestion Last Admin: 12/11/16 09:48 Dose: 200 mg Heparin Sodium (Porcine) (Heparin) 5,000 units SC Q12 [facility] Last Admin: 12/12/16 12:10 Dose: 5,000 units Meclizine HCl (Antivert) 25 mg PO TID [facility] Last Admin: 12/12/16 15:06 Dose: 25 mg Thiamine HCl (Vitamin B1 Tab) 100 mg PO DAILY [facility] Last Admin: 12/12/16 12:10 Dose: 100 mg - Labs Labs: PT 11.0 SECONDS (9.7-12.2) 12/09/16 16:49 INR 1.0 12/09/16 16:49 APTT 29 SECONDS (21-34) 12/09/16 16:49
[2016-12-12 16:29] VITALS: BP 121/75; PULSE 74; RESP 20; TEMP 98; O2SAT 97
--- NOTE | 2016-12-12 17:30 | CP.PCM.PN ---
Subjective - Date & Time of Evaluation Date of Evaluation: 12/12/16 Time of Evaluation: 11:20 - Subjective Subjective: clinically same Objective - Vital Signs/Intake and Output Vital Signs (last 24 hours): Temp Pulse Resp BP Pulse Ox 98 F 74 20 121/75 97 12/12/16 16:00 12/12/16 16:00 12/12/16 16:00 12/12/16 16:00 12/12/16 16:00 Intake and Output: 12/12/16 12/12/16 06:59 18:59 Intake Total 480 Balance 480 - Medications Medications: Current Medications Amlodipine Besylate (Norvasc) 5 mg PO DAILY [facility] Last Admin: 12/12/16 12:10 Dose: 5 mg Clopidogrel Bisulfate (Plavix) 75 mg PO DAILY [facility] Last Admin: 12/12/16 12:09 Dose: 75 mg Ergocalciferol (Drisdol 50,000 Intl Units Cap) 1 cap PO QWK [facility] Famotidine (Pepcid) 20 mg PO BID [facility] Last Admin: 12/12/16 17:28 Dose: 20 mg Guaifenesin (Robitussin) 200 mg PO TID PRN PRN Reason: Cough and congestion Last Admin: 12/11/16 09:48 Dose: 200 mg Heparin Sodium (Porcine) (Heparin) 5,000 units SC Q12 [facility] Last Admin: 12/12/16 12:10 Dose: 5,000 units Meclizine HCl (Antivert) 25 mg PO TID [facility] Last Admin: 12/12/16 17:28 Dose: 25 mg Thiamine HCl (Vitamin B1 Tab) 100 mg PO DAILY [facility] Last Admin: 12/12/16 12:10 Dose: 100 mg - Labs Labs: PT 11.0 SECONDS (9.7-12.2) 12/09/16 16:49 INR 1.0 12/09/16 16:49 APTT 29 SECONDS (21-34) 12/09/16 16:49 - Constitutional Appears: Well - Head Exam Head Exam: ATRAUMATIC, NORMAL INSPECTION, NORMOCEPHALIC - Eye Exam Eye Exam: EOMI, Normal appearance, PERRL Pupil Exam: NORMAL ACCOMODATION, PERRL - ENT Exam ENT Exam: Mucous Membranes Moist, Normal Exam - Neck Exam Neck Exam: Full ROM, Normal Inspection. absent: Lymphadenopathy - Respiratory Exam Respiratory Exam: Decreased Breath Sounds - Cardiovascular Exam Cardiovascular Exam: REGULAR RHYTHM, +S1, +S2 - GI/Abdominal Exam GI & Abdominal Exam: Soft, Diminished Bowel Sounds - Rectal Exam Rectal Exam: Deferred
--- NOTE | 2016-12-13 23:13 | EEG ---
DATE: 12/11/2016 This is a 16-channel electroencephalogram of a lethargic adult. During the study, photic stimulation was performed. Hyperventilation was not performed. The resting electroencephalogram shows 20-30 microvolt diffuse fast beta activities noted. This foll owed with generalized 4-5 Hz theta activities noted. Photic stimulation did not evoke driving respon se noted at 2-20 Hz. The frontal leads show persistent muscle artifact from the beginning. IMPRESSION: This is an abnormal electroencephalogram because of persistent slowing throughout the re cord suggestive of bilateral cerebral dysfunction. This is probably secondary to metabolic vascular degenerative process. However, during the study, neither electroencephalographic paroxysmal activiti es nor focal slowing noted. Miller Rossi MD cc: [id number] TT: 12/13/2016 23:12:39 Confirmation # [id number] Dictation # [id number]
[2016-12-16] MEDS ORDERED: Ergocalciferol 50,000 Intl Units Cap PO SCH (10:00)
== END 2016-12-12 18:11 | disposition home or self-care (01) | DRG 312 ==
LOC: C.ER 15:20 → C.9E 18:26 → C.6T 19:05 → OBSVTOIN 12-11 18:55 → C.6T 12-12 08:38
PROVIDERS: ADMIT Internal Medicine Nephrology; ATTEND Internal Medicine Nephrology
DX: R55 Syncope and collapse (principal); I10 Essential (primary) hypertension; R27.0 Ataxia, unspecified; Z91.81 History of falling